=== PATIENT | male | born 2000 | race Caucasian/White ===

== ENCOUNTER 2018-07-03 20:48 | Emergency (ER) | payer MEDICAID ==
[~2018-07-03] VITALS: Ht 177.8 cm; Wt 81.6 kg
[2018-07-03 21:07] VITALS: BP_SYST 151
[2018-07-03 22:15] VITALS: BP_SYST 136
[2018-07-03] MEDS ORDERED: AMOXICILLIN 500 MG CAPSULE PO ONE (22:15)
== END 2018-07-03 22:15 | disposition home or self-care (01) ==
LOC: SED 20:48
DX: H61.23 Impacted cerumen, bilateral (principal); H66.92 Otitis media, unspecified, left ear
CPT/HCPCS: 99284